=== PATIENT | male | born 1995 | race Two or more races ===

== ENCOUNTER 2018-03-14 15:59 | Emergency (ER) | payer SELFPAY ==
[~2018-03-14] VITALS: Ht 188 cm; Wt 81.8 kg
[2018-03-14] MEDS: IBUPROFEN 600 MG TABLET PO ONE ×2 (19:06→19:57)
[2018-03-14 19:53] VITALS: BP 119/66
== END 2018-03-14 20:00 | disposition home or self-care (01) ==
LOC: EMS 16:00
DX: S83.91XA Sprain of unspecified site of right knee, initial encounter (principal); X50.1XXA Overexertion from prolonged static or awkward postures, initial encounter; Y93.66 Activity, soccer; Y92.89 Other specified places as the place of occurrence of the external cause; Y99.8 Other external cause status
CPT/HCPCS: 29505

== ENCOUNTER 2018-11-02 04:58 | Emergency (ER) | payer OTHER ==
[~2018-11-02] VITALS: Ht 160 cm; Wt 54.5 kg
[2018-11-02] MEDS ORDERED: IPRATROPIUM BROMIDE 0.5 MG/2.5 ML NEB SOLUTION NEB ONE (05:15)
[2018-11-02] MEDS ORDERED: ALBUTEROL SULFATE HFA 90 MCG/PUFF 8 GM INHALER IH ONE (05:15)
[2018-11-02] MEDS ORDERED: ALBUTEROL SULFATE 5 MG/ML 20 ML NEB SOLN [BULK] NEB ONE (05:15)
[2018-11-02 06:02] VITALS: BP 118/79
== END 2018-11-02 06:17 | disposition home or self-care (01) ==
LOC: EMS 04:59
DX: J45.909 Unspecified asthma, uncomplicated (principal)
CPT/HCPCS: 94640; 94644; J3535

== ENCOUNTER 2019-01-12 08:58 | Emergency (ER) | payer OTHER ==
[~2019-01-12] VITALS: Ht 167.6 cm; Wt 72.7 kg
[2019-01-12] MEDS ORDERED: ALBUTEROL SULFATE 2.5 MG/0.5 ML NEB SOLUTION NEB ONE (09:30)
[2019-01-12] MEDS ORDERED: PredniSONE 20 MG TABLET PO ONE (09:30)
[2019-01-12] MEDS ORDERED: IPRATROPIUM BROMIDE 0.5 MG/2.5 ML NEB SOLUTION NEB ONE ×2 (09:30→10:00)
[2019-01-12] MEDS ORDERED: ALBUTEROL SULFATE 5 MG/ML 20 ML NEB SOLN [BULK] NEB ONE (10:00)
[2019-01-12] MEDS ORDERED: 0.9% SODIUM CHLORIDE 5 ML NEB SOLUTION NEB ONE (10:15)
[2019-01-12] MEDS ORDERED: ALBUTEROL SULFATE HFA 90 MCG/PUFF 8 GM INHALER IH ONE (10:15)
[2019-01-12 11:51] VITALS: BP 122/79
== END 2019-01-12 11:57 | disposition home or self-care (01) ==
LOC: EMS 08:59
DX: J98.01 Acute bronchospasm (principal); Z91.048 Other nonmedicinal substance allergy status
CPT/HCPCS: 94640; 94644; 99285; J7512; J3535